=== PATIENT | male | born 1970 | race Caucasian/White ===

== ENCOUNTER 2021-02-01 07:20 | Emergency (ER) | payer BC, OTHER ==
[~2021-02-01] VITALS: Ht 185.4 cm; Wt 83.6 kg
[2021-02-01 07:25] VITALS: BP 101/82
--- NOTE | 2021-02-01 07:52 | NUR ---
PT TO ROOM FROM LOBBY, GAIT STEADY
[2021-02-01] MEDS ORDERED: IBUPROFEN 800 MG TABLET PO ONE (08:00)
[2021-02-01] MEDS ORDERED: IBUPROFEN 800 MG TABLET ONE (08:10)
== END 2021-02-01 09:00 | disposition home or self-care (01) ==
LOC: ED 08:53
DX: S63.522A Sprain of radiocarpal joint of left wrist, initial encounter (principal); W01.0XXA Fall on same level from slipping, tripping and stumbling without subsequent striking against object, initial encounter; Y93.89 Activity, other specified; Y92.009 Unspecified place in unspecified non-institutional (private) residence as the place of occurrence of the external cause; Y99.8 Other external cause status
CPT/HCPCS: 29125; 99283